=== PATIENT | male | born 1950 | race African-American/Black ===

== ENCOUNTER 2021-10-19 16:08 | Inpatient (IN) | payer OTHER ==
[2021-10-19 17:01] LABS: BASO % 0.5 % (0-2.0); EOS % 0.7 % (0-4.5); HEMOGLOBIN 12.9 GM/dL (11.7-16.9); MCH 31.1 pg (25.7-33.7); MEAN CELL VOLUME 91.3 fl (80-96); MEAN PLT VOLUME 9.3 fl (7.5-11.1); MONO % 8.3 % (3.8-10.2); NEUT % 59.5 % (42.8-82.8); PLATELET COUNT 264 10^3/uL (134-434); RBC 4.16 M/mm3 (4.00-5.60); RDW 13.7 % (11.9-15.9); WHITE BLOOD COUNT 3.9 K/mm3 (4.0-10.0)
[2021-10-19 17:05] LABS: INR 1.09 (0.83-1.09); PROTHROMBIN TIME (PATIENT) 12.5 SEC (9.7-13.0)
[2021-10-19 17:26] LABS: CHLORIDE 99 mmol/L (98-107); SODIUM 136 mmol/L (136-145)
[2021-10-19 17:28] LABS: ALBUMIN 3.4 g/dl (3.4-5.0); ANION GAP 12 MMOL/L (8-16); BLOOD UREA NITROGEN 19.8 mg/dL (7-18); CALCIUM 9.4 mg/dL (8.5-10.1); CO2 25 mmol/L (21-32)
[2021-10-19 17:31] LABS: SGOT/AST 13 U/L (15-37); SGPT/ALT 28 U/L (13-61)
[2021-10-19 17:34] LABS: BILIRUBIN,TOTAL 0.9 mg/dL (0.2-1)
[2021-10-19 17:37] LABS: ALK PHOS 80 U/L (45-117)
[2021-10-19 17:40] LABS: GLUCOSE,RANDOM 458 mg/dL (74-106)
[2021-10-19] MEDS ORDERED: SODIUM CHLORIDE 0.9% 500 ML INFUS.BAG IV ONE (17:46)
[2021-10-19] MEDS ORDERED: INSULIN REGULAR HUMAN 100 UNITS/ML *VIAL SQ ONE (18:14)
[2021-10-19] MEDS ORDERED: OSELTAMIVIR PHOSPHATE 75 MG CAPSULE PO ONE (21:34)
[2021-10-19] MEDS ORDERED: ACETAMINOPHEN 325 MG TABLET (FP) PO PRN (22:03)
[2021-10-19] MEDS ORDERED: ATORVASTATIN CA 40 MG TABLET (FP) ONE (22:32)
[2021-10-19] MEDS ORDERED: HEPARIN NA (PORCINE) 5,000 UNITS/ML 1ML VIAL ONE (22:33)
[2021-10-19] MEDS: HEPARIN NA (PORCINE) 5,000 UNITS/ML 1ML VIAL SQ SCH (22:50)
[2021-10-19] MEDS: INSULIN SLIDING SCALE (NOVOLOG) 1 VIAL SQ SCH (22:50)
[2021-10-19 22:54] LABS: URINE APPEARANCE CLEAR; URINE BILIRUBIN NEGATIVE (NEGATIVE); URINE COLOR YELLOW; URINE GLUCOSE (UA) 3+ (NEGATIVE); URINE KETONE NEGATIVE (NEGATIVE); URINE LEUK ESTERASE NEGATIVE (NEGATIVE); URINE NITRITE NEGATIVE (NEGATIVE); URINE PROTEIN NEGATIVE (NEGATIVE); URINE UROBILINOGEN 0.2 mg/dL (0.2-1.0)
[2021-10-20 06:12] LABS: BASO % 1.2 % (0-2.0); EOS % 1.7 % (0-4.5); HEMATOCRIT 39.6 % (35.4-49); HEMOGLOBIN 13.6 GM/dL (11.7-16.9); LYMPH % 44.9 % (8-40); MCH 30.8 pg (25.7-33.7); MCHC 34.3 g/dl (32.0-35.9); MEAN CELL VOLUME 89.8 fl (80-96); MEAN PLT VOLUME 8.7 fl (7.5-11.1); MONO % 7.6 % (3.8-10.2); NEUT % 44.6 % (42.8-82.8); PLATELET COUNT 254 10^3/uL (134-434); RBC 4.41 M/mm3 (4.00-5.60); RDW 14.1 % (11.9-15.9); WHITE BLOOD COUNT 3.5 K/mm3 (4.0-10.0)
[2021-10-20] MEDS: HEPARIN NA (PORCINE) 5,000 UNITS/ML 1ML VIAL SQ SCH ×3 (06:13→21:47)
[2021-10-20 06:37] LABS: ALBUMIN 3.4 g/dl (3.4-5.0); BLOOD UREA NITROGEN 14.7 mg/dL (7-18); CALCIUM 9.6 mg/dL (8.5-10.1); MAGNESIUM 2.2 mg/dL (1.8-2.4)
[2021-10-20 06:40] LABS: CREATININE 1.1 mg/dL (0.55-1.3); PHOSPHOROUS 4.1 mg/dL (2.5-4.9)
[2021-10-20 06:41] LABS: BILIRUBIN,TOTAL 0.7 mg/dL (0.2-1); TOT PROT 7.3 g/dl (6.4-8.2)
[2021-10-20] MEDS: INSULIN SLIDING SCALE (NOVOLOG) 1 VIAL SQ SCH ×3 (08:15→21:46)
[2021-10-20] MEDS: INSULIN (LEVEMIR) 100 UNITS/ML UNITS SQ SCH ×2 (08:20→21:48)
[2021-10-20] MEDS ORDERED: amLODIPine BESYLATE 10 MG TABLET (FP) ONE (09:37)
[2021-10-20] MEDS: amLODIPine BESYLATE 10 MG TABLET (FP) PO SCH (09:44)
[2021-10-20] MEDS: OSELTAMIVIR PHOSPHATE 75 MG CAPSULE PO SCH ×2 (09:44→22:30)
[2021-10-20] MEDS ORDERED: HEPARIN NA (PORCINE) 5,000 UNITS/ML 1ML VIAL ONE (15:43)
[2021-10-20] MEDS ORDERED: ATORVASTATIN CA 40 MG TABLET (FP) PO SCH (22:00)
[2021-10-20 23:03] VITALS: BMI 23.1
[2021-10-21] MEDS: HEPARIN NA (PORCINE) 5,000 UNITS/ML 1ML VIAL SQ SCH ×2 (06:45→14:07)
[2021-10-21] MEDS: INSULIN SLIDING SCALE (NOVOLOG) 1 VIAL SQ SCH ×2 (06:45→11:13)
[2021-10-21] MEDS: INSULIN (LEVEMIR) 100 UNITS/ML UNITS SQ SCH (06:45)
[2021-10-21 08:09] LABS: BASO % 0.7 % (0-2.0); EOS % 1.2 % (0-4.5); HEMATOCRIT 37.8 % (35.4-49); HEMOGLOBIN 13.1 GM/dL (11.7-16.9); LYMPH % 42.9 % (8-40); MCH 31.2 pg (25.7-33.7); MCHC 34.7 g/dl (32.0-35.9); MEAN CELL VOLUME 89.9 fl (80-96); MEAN PLT VOLUME 9.3 fl (7.5-11.1); MONO % 10.1 % (3.8-10.2); NEUT % 45.1 % (42.8-82.8); PLATELET COUNT 258 10^3/uL (134-434); RDW 13.7 % (11.9-15.9); WHITE BLOOD COUNT 2.9 K/mm3 (4.0-10.0)
[2021-10-21 08:33] LABS: BLOOD UREA NITROGEN 12.3 mg/dL (7-18); CALCIUM 9.1 mg/dL (8.5-10.1)
[2021-10-21 08:36] LABS: CREATININE 0.8 mg/dL (0.55-1.3)
[2021-10-21] MEDS: amLODIPine BESYLATE 10 MG TABLET (FP) PO SCH (09:31)
[2021-10-21] MEDS: OSELTAMIVIR PHOSPHATE 75 MG CAPSULE PO SCH (09:32)
[2021-10-21] MEDS ORDERED: INSULIN (LEVEMIR) 100 UNITS/ML UNITS SQ ONE (10:06)
[2021-10-21] MEDS ORDERED: INSULIN (NOVOLOG) ASPART 100 UNITS/ML 10ML VIAL SQ SCH (11:00)
[2021-10-21 16:39] VITALS: BP 150/91; PULSE 99; TEMP 98.6
[2021-10-21] MEDS ORDERED: INSULIN (LEVEMIR) 100 UNITS/ML UNITS SQ SCH (22:00)
[2021-10-22] MEDS ORDERED: INSULIN (LEVEMIR) 100 UNITS/ML UNITS SQ SCH (07:00)
== END 2021-10-21 18:08 | disposition home or self-care (01) | DRG 315 ==
LOC: JER 16:08 → JERBED 17:49 → OBSVTOIN 21:58 → J4W 10-20 19:24
PROVIDERS: ADMIT Hospitalist; ATTEND Internal Medicine
DX: I95.9 Hypotension, unspecified (principal); N17.9 Acute kidney failure, unspecified; J10.1 Influenza due to other identified influenza virus with other respiratory manifestations; E11.65 Type 2 diabetes mellitus with hyperglycemia; E86.0 Dehydration
CPT/HCPCS: 36415; 70450-TC; 71045-TC-FY; 72125-TC; 73564-TC-LT-FY; 74018-TC-FY; 76775-TC; 80048; 80053; 80061; 81003; 82570; 82962; 83036; 83735; 84100; 84300; 84443; 84484; 85025; 85610; 87804; 93005; 93010; 93306-TC; 93880-TC; 97116-GP; 97161-GP; 99285-25; C9803-CS; G0378; J1644; U0003; U0005

== ENCOUNTER 2022-06-27 18:37 | Inpatient (IN) | payer OTHER ==
[2022-06-27 23:47] LABS: VENOUS O2 SATURATION 38.4 % (70-80); VENOUS PCO2 47.3 mmHg (38-52); VENOUS PH 7.343 (7.310-7.410)
[2022-06-27 23:48] LABS: BASO % 0.8 % (0-2.0); EOS % 1.1 % (0-4.5); HEMATOCRIT 40.4 % (35.4-49); HEMOGLOBIN 13.5 GM/dL (11.7-16.9); LYMPH % 31.4 % (8-40); MCH 30.2 pg (25.7-33.7); MCHC 33.4 g/dl (32.0-35.9); MEAN CELL VOLUME 90.5 fl (80-96); MEAN PLT VOLUME 8.4 fl (7.5-11.1); MONO % 8.8 % (3.8-10.2); NEUT % 57.9 % (42.8-82.8); PLATELET COUNT 241 10^3/uL (134-434); RBC 4.47 M/mm3 (4.00-5.60); RDW 14.6 % (11.9-15.9); WHITE BLOOD COUNT 3.4 K/mm3 (4.0-10.0)
[2022-06-27] MEDS ORDERED: SODIUM CHLORIDE 1,000 ML IV STA (23:53)
[2022-06-28 00:07] LABS: CHLORIDE 96 mmol/L (98-107)
[2022-06-28 00:09] LABS: CALCIUM 9.4 mg/dL (8.5-10.1)
[2022-06-28 00:10] LABS: ALBUMIN 3.5 g/dl (3.4-5.0); BLOOD UREA NITROGEN 20.2 mg/dL (7-18); CO2 26 mmol/L (21-32); GLUCOSE,RANDOM 374 mg/dL (74-106)
[2022-06-28 00:13] LABS: CREATININE 1.3 mg/dL (0.55-1.3); SGOT/AST 14 U/L (15-37); SGPT/ALT 22 U/L (13-61)
[2022-06-28 00:14] LABS: BILIRUBIN,TOTAL 0.8 mg/dL (0.2-1)
[2022-06-28 00:15] LABS: TOT PROT 7.1 g/dl (6.4-8.2)
[2022-06-28 00:16] LABS: ALK PHOS 62 U/L (45-117)
[2022-06-28 00:43] LABS: ANION GAP 11 MMOL/L (8-16); SODIUM 132 mmol/L (136-145)
[2022-06-28] MEDS ORDERED: HEPARIN NA (PORCINE) 5,000 UNITS/ML 1ML VIAL IVPUSH ONE (00:55)
[2022-06-28] MEDS ORDERED: HEPARIN NA (PORCINE) 5,000 UNITS/ML 1ML VIAL ONE (01:08)
[2022-06-28 01:32] LABS: INR 1.03 (0.83-1.09); PROTHROMBIN TIME (PATIENT) 11.8 SEC (9.7-13.0)
[2022-06-28 01:35] LABS: ACTIVATED PTT 27.1 SECONDS (25.2-36.5)
[2022-06-28] MEDS ORDERED: CLOPIDOGREL BISULFATE 300 MG TABLET PO ONE (02:01)
[2022-06-28] MEDS ORDERED: ASPIRIN 325 MG TABLET PO ONE (02:01)
[2022-06-28] MEDS ORDERED: ATORVASTATIN CA 80 MG TABLET (FP) PO ONE (02:23)
[2022-06-28] MEDS ORDERED: ENALAPRIL MALEATE 10 MG TABLET PO ONE (02:30)
[2022-06-28] MEDS ORDERED: ENALAPRIL MALEATE 5 MG TABLET ONE (02:38)
[2022-06-28] MEDS ORDERED: CLOPIDOGREL BISULFATE 300 MG TABLET ONE (02:39)
[2022-06-28] MEDS ORDERED: ATORVASTATIN CA 80 MG TABLET (FP) ONE (02:39)
[2022-06-28] MEDS ORDERED: ASPIRIN 325 MG TABLET ONE (02:39)
[2022-06-28] MEDS ORDERED: HEPARIN NA (PORCINE) 5,000 UNITS/ML 1ML VIAL IVPUSH PRN ×2 (04:42)
[2022-06-28] MEDS ORDERED: HEPARIN INFUSION - 25,000 UNITS/500 ML INFUS.BAG IVPB SCH (04:45)
[2022-06-28] MEDS ORDERED: HEPARIN INFUSION - 25,000 UNITS/500 ML INFUS.BAG IVPB ONE (05:54)
[2022-06-28] MEDS: INSULIN SLIDING SCALE (NOVOLOG) 1 VIAL SQ SCH ×4 (08:00→22:19)
[2022-06-28 08:15] LABS: MAGNESIUM 2.4 mg/dL (1.8-2.4)
[2022-06-28 08:18] LABS: ALBUMIN 3.3 g/dl (3.4-5.0); BLOOD UREA NITROGEN 16.4 mg/dL (7-18)
[2022-06-28 08:19] LABS: CREATININE 0.9 mg/dL (0.55-1.3)
[2022-06-28 08:20] LABS: BASO % 0.4 % (0-2.0); EOS % 2.2 % (0-4.5); HEMATOCRIT 37.2 % (35.4-49); HEMOGLOBIN 12.6 GM/dL (11.7-16.9); LYMPH % 42.6 % (8-40); MCH 30.4 pg (25.7-33.7); MCHC 33.9 g/dl (32.0-35.9); MEAN CELL VOLUME 89.8 fl (80-96); MEAN PLT VOLUME 9.1 fl (7.5-11.1); MONO % 9.9 % (3.8-10.2); NEUT % 44.9 % (42.8-82.8); PLATELET COUNT 236 10^3/uL (134-434); RBC 4.14 M/mm3 (4.00-5.60); RDW 14.3 % (11.9-15.9); WHITE BLOOD COUNT 3.1 K/mm3 (4.0-10.0)
[2022-06-28 08:21] LABS: PHOSPHOROUS 3.9 mg/dL (2.5-4.9); TOT PROT 6.6 g/dl (6.4-8.2)
[2022-06-28] MEDS ORDERED: METOPROLOL TARTRATE 25 MG TABLET (FP) ONE (09:08)
[2022-06-28] MEDS ORDERED: CLOPIDOGREL BISULFATE 75 MG TABLET (FP) ONE (09:08)
[2022-06-28] MEDS ORDERED: ASPIRIN 81 MG CHEWABLE TABLETS ONE (09:08)
[2022-06-28] MEDS ORDERED: TAMSULOSIN HCL 0.4 MG CAP ONE (09:09)
[2022-06-28] MEDS: TAMSULOSIN HCL 0.4 MG CAP PO SCH (09:30)
[2022-06-28] MEDS: ASPIRIN 81 MG CHEWABLE TABLETS PO SCH (10:00)
[2022-06-28] MEDS: CLOPIDOGREL BISULFATE 75 MG TABLET (FP) PO SCH (10:00)
[2022-06-28] MEDS: METOPROLOL TARTRATE 25 MG TABLET (FP) PO SCH ×2 (10:00→22:21)
[2022-06-28] MEDS ORDERED: SODIUM CHLORIDE 0.9% 500 ML INFUS.BAG IV ONE (16:19)
[2022-06-28 16:25] LABS: EPI CELLS 2 /uL (0-25.1); HYALINE CASTS 0 /uL (0-3.1); URINE APPEARANCE CLEAR; URINE BACTERIA 1 /uL (0-1359); URINE BILIRUBIN NEGATIVE (NEGATIVE); URINE COLOR YELLOW; URINE GLUCOSE (UA) TRACE (NEGATIVE); URINE KETONE NEGATIVE (NEGATIVE); URINE LEUK ESTERASE NEGATIVE (NEGATIVE); URINE NITRITE NEGATIVE (NEGATIVE); URINE PROTEIN NEGATIVE (NEGATIVE); URINE RBC 10 /uL (0-23.9); URINE UROBILINOGEN 0.2 mg/dL (0.2-1.0); URINE WBC 1 /uL (0-25.8)
[2022-06-28 18:57] VITALS: BMI 21.1
[2022-06-28] MEDS ORDERED: PNEUMOC 20-VAL CONJ-DIP CRM/PF 0.5 ML SYRINGE IM ONE (20:00)
[2022-06-28] MEDS ORDERED: FLU VACC QS2022-23(6MOS UP)/PF 60 MCG/0.5 ML SYRINGE IM ONE (20:00)
[2022-06-28] MEDS ORDERED: ATORVASTATIN CA 40 MG TABLET (FP) PO SCH (22:00)
[2022-06-29] MEDS: INSULIN SLIDING SCALE (NOVOLOG) 1 VIAL SQ SCH ×2 (06:21→14:43)
[2022-06-29 07:20] LABS: BASO % 0.4 % (0-2.0); EOS % 1.3 % (0-4.5); HEMATOCRIT 38.7 % (35.4-49); HEMOGLOBIN 13.3 GM/dL (11.7-16.9); LYMPH % 24.9 % (8-40); MCH 31.2 pg (25.7-33.7); MCHC 34.5 g/dl (32.0-35.9); MEAN CELL VOLUME 90.4 fl (80-96); MEAN PLT VOLUME 8.8 fl (7.5-11.1); MONO % 9.3 % (3.8-10.2); NEUT % 64.1 % (42.8-82.8); PLATELET COUNT 240 10^3/uL (134-434); RBC 4.28 M/mm3 (4.00-5.60); RDW 14.4 % (11.9-15.9); WHITE BLOOD COUNT 3.4 K/mm3 (4.0-10.0)
[2022-06-29 07:39] LABS: CHLORIDE 108 mmol/L (98-107); SODIUM 144 mmol/L (136-145)
[2022-06-29 07:41] LABS: CALCIUM 9.1 mg/dL (8.5-10.1)
[2022-06-29 07:42] LABS: ANION GAP 7 MMOL/L (8-16); BLOOD UREA NITROGEN 15.5 mg/dL (7-18); CO2 29 mmol/L (21-32); GLUCOSE,RANDOM 133 mg/dL (74-106); MAGNESIUM 2.2 mg/dL (1.8-2.4)
[2022-06-29 07:45] LABS: CREATININE 0.8 mg/dL (0.55-1.3); PHOSPHOROUS 3.8 mg/dL (2.5-4.9)
[2022-06-29] MEDS: TAMSULOSIN HCL 0.4 MG CAP PO SCH (09:00)
[2022-06-29] MEDS ORDERED: ACETAMINOPHEN 1000 MG/100 ML BAG IVPB PRN (10:00)
[2022-06-29] MEDS ORDERED: ENALAPRIL MALEATE 10 MG TABLET PO SCH (10:00)
[2022-06-29] MEDS: ASPIRIN 81 MG CHEWABLE TABLETS PO SCH (10:03)
[2022-06-29] MEDS: CLOPIDOGREL BISULFATE 75 MG TABLET (FP) PO SCH (10:03)
[2022-06-29] MEDS ORDERED: ACETAMINOPHEN 325 MG TABLET (FP) PO PRN (10:04)
[2022-06-29] MEDS ORDERED: REGADENOSON 0.4 MG/5 ML PRE-FILLED SYRINGE IVPUSH ONE ×2 (10:06→13:00)
[2022-06-29] MEDS: METOPROLOL TARTRATE 25 MG TABLET (FP) PO SCH (10:28)
[2022-06-29 15:54] VITALS: BP 147/98; PULSE 111; RESP 18; TEMP 99.2
== END 2022-06-29 16:50 | disposition home or self-care (01) | DRG 282 ==
LOC: JER 18:37 → JERBED 06-28 02:38 → J4W 06-28 18:09
PROVIDERS: ADMIT Internal Medicine; ATTEND Internal Medicine
DX: I21.4 Non-ST elevation (NSTEMI) myocardial infarction (principal); I10 Essential (primary) hypertension; E11.65 Type 2 diabetes mellitus with hyperglycemia; E78.5 Hyperlipidemia, unspecified; N40.0 Benign prostatic hyperplasia without lower urinary tract symptoms; R00.0 Tachycardia, unspecified
CPT/HCPCS: 0241U-QW; 36415; 70450-TC; 71045-TC-FY; 78452-TC; 80048; 80053; 80061; 81003; 82010; 82803; 82962; 83036; 83735; 84100; 84443; 84484; 85025; 85610; 85730; 90677; 93005; 93010; 93017; 93306-TC; 99285-25; A9502; G0008; J1644; J2785; Q2036

== ENCOUNTER 2022-07-26 15:16 | Emergency (ER) | payer OTHER ==
[2022-07-26 15:41] VITALS: PULSE 93; TEMP 97.9; BMI 21.5
[2022-07-26] MEDS ORDERED: SODIUM CHLORIDE 0.9% 500 ML INFUS.BAG IV ONE (15:56)
[2022-07-26 17:14] LABS: BASO % 0.5 % (0-2.0); EOS % 1.8 % (0-4.5); HEMATOCRIT 33.6 % (35.4-49); HEMOGLOBIN 11.7 GM/dL (11.7-16.9); LYMPH % 36.2 % (8-40); MCHC 34.8 g/dl (32.0-35.9); MEAN CELL VOLUME 91.9 fl (80-96); MEAN PLT VOLUME 8.4 fl (7.5-11.1); NEUT % 50.5 % (42.8-82.8); PLATELET COUNT 198 10^3/uL (134-434); RBC 3.66 M/mm3 (4.00-5.60); RDW 14.4 % (11.9-15.9); WHITE BLOOD COUNT 2.8 K/mm3 (4.0-10.0)
[2022-07-26 17:23] LABS: INR 1.05 (0.83-1.09); PROTHROMBIN TIME (PATIENT) 12.1 SEC (9.7-13.0)
[2022-07-26 17:26] LABS: ACTIVATED PTT 29.4 SECONDS (25.2-36.5)
[2022-07-26 17:34] LABS: BLOOD UREA NITROGEN 14.1 mg/dL (7-18)
[2022-07-26 17:35] LABS: ALBUMIN 3.4 g/dl (3.4-5.0)
[2022-07-26 17:38] LABS: CREATININE 1.1 mg/dL (0.55-1.3)
[2022-07-26 17:39] LABS: BILIRUBIN,TOTAL 0.6 mg/dL (0.2-1)
[2022-07-26 18:05] VITALS: BP 126/85; RESP 16
[2022-07-26] MEDS ORDERED: LACTATED RINGERS SOLUTION 1000 ML INFUS.BAG IV ONE (18:37)
== END 2022-07-26 19:56 | disposition left against medical advice (07) ==
LOC: JER 15:16
DX: R42 Dizziness and giddiness (principal); I95.1 Orthostatic hypotension
CPT/HCPCS: 0241U-QW; 36415; 70450-TC; 71045-TC-FY; 72125-TC; 72170-TC-FY; 73502-TC-LT-FY; 74177-TC; 80053; 84484; 85025; 85610; 85730; 93005; 93010; 99285-25; Q9967

== ENCOUNTER 2023-07-09 17:57 | Observation (INO) | payer OTHER ==
[2023-07-09 19:13] LABS: BASO % 0.6 % (0-2.0); EOS % 0.8 % (0-4.5); HEMATOCRIT 29.8 % (35.4-49); HEMOGLOBIN 9.4 GM/dL (11.7-16.9); LYMPH % 17.1 % (8-40); MCH 25.4 pg (25.7-33.7); MCHC 31.5 g/dl (32.0-35.9); MEAN CELL VOLUME 80.6 fl (80-96); MEAN PLT VOLUME 7.8 fl (7.5-11.1); MONO % 7.7 % (3.8-10.2); NEUT % 73.8 % (42.8-82.8); PLATELET COUNT 317 10^3/uL (134-434); WHITE BLOOD COUNT 4.2 K/mm3 (4.0-10.0)
[2023-07-09 19:19] LABS: INR 1.09 (0.83-1.09); PROTHROMBIN TIME (PATIENT) 12.6 SEC (9.7-13.0)
[2023-07-09 19:21] LABS: ACTIVATED PTT 28.6 SECONDS (25.2-36.5)
[2023-07-09 19:31] LABS: CHLORIDE 102 mmol/L (98-107); POTASSIUM 4.6 mmol/L (3.5-5.1); SODIUM 135 mmol/L (136-145)
[2023-07-09 19:34] LABS: ANION GAP 8 mmol/L (4-13); CALCIUM 9.3 mg/dL (8.5-10.1); CO2 24 mmol/L (21-32)
[2023-07-09 19:35] LABS: ALBUMIN 3.3 g/dl (3.4-5.0); BLOOD UREA NITROGEN 18.1 mg/dL (7-18); MAGNESIUM 2.4 mg/dL (1.8-2.4)
[2023-07-09 19:38] LABS: CREATININE 1.3 mg/dL (0.55-1.3); PHOSPHOROUS 5.1 mg/dL (2.5-4.9); SGOT/AST 24 U/L (15-37); SGPT/ALT 37 U/L (13-61)
[2023-07-09 19:39] LABS: BILIRUBIN,TOTAL 0.4 mg/dL (0.2-1); TOT PROT 7.9 g/dl (6.4-8.2)
[2023-07-09 19:40] LABS: ALK PHOS 124 U/L (45-117)
[2023-07-09] MEDS ORDERED: ACETAMINOPHEN 1000 MG/100 ML BAG IVPB ONE (19:43)
[2023-07-09] MEDS ORDERED: SODIUM CHLORIDE 0.9% 500 ML INFUS.BAG IV ONE (19:44)
[2023-07-09 19:53] LABS: GLUCOSE,RANDOM 409 mg/dL (74-106)
[2023-07-09] MEDS ORDERED: ACETAMINOPHEN INJECTION 100 ML IVPB ONE (19:53)
[2023-07-09 21:38] LABS: PH,URINE 5.5 (5.0-8.0); URINE APPEARANCE CLEAR; URINE BILIRUBIN NEGATIVE (NEGATIVE); URINE COLOR YELLOW; URINE GLUCOSE (UA) 3+ (NEGATIVE); URINE KETONE NEGATIVE (NEGATIVE); URINE LEUK ESTERASE NEGATIVE (NEGATIVE); URINE NITRITE NEGATIVE (NEGATIVE); URINE PROTEIN TRACE (NEGATIVE); URINE UROBILINOGEN 0.2 mg/dL (0.2-1.0)
[2023-07-09] MEDS ORDERED: SODIUM CHLORIDE 1,000 ML IV SCH ×2 (22:00→22:51)
[2023-07-09] MEDS ORDERED: INSULIN REGULAR HUMAN 100 UNITS/ML *VIAL SQ ONE (23:43)
[2023-07-10] MEDS ORDERED: glipiZIDE 5 MG TABLET (FP) ONE (05:56)
[2023-07-10] MEDS: INSULIN ASPART SLIDING SCALE (NOVOLOG) 1 VIAL SQ SCH ×4 (08:53→22:33)
[2023-07-10] MEDS: glipiZIDE 5 MG TABLET (FP) PO SCH ×3 (09:00→18:45)
[2023-07-10 09:01] LABS: BASO % 0.4 % (0-2.0); EOS % 1.6 % (0-4.5); HEMOGLOBIN 8.3 GM/dL (11.7-16.9); MCHC 32.1 g/dl (32.0-35.9); MEAN PLT VOLUME 8.4 fl (7.5-11.1); MONO % 9.9 % (3.8-10.2); NEUT % 62.1 % (42.8-82.8); PLATELET COUNT 290 10^3/uL (134-434); RBC 3.21 M/mm3 (4.00-5.60); RDW 15.6 % (11.9-15.9); WHITE BLOOD COUNT 3.5 K/mm3 (4.0-10.0)
[2023-07-10 09:19] LABS: POTASSIUM 4.3 mmol/L (3.5-5.1)
[2023-07-10 09:23] LABS: ALBUMIN 3.1 g/dl (3.4-5.0); BLOOD UREA NITROGEN 15.4 mg/dL (7-18); CALCIUM 9.2 mg/dL (8.5-10.1); MAGNESIUM 2.4 mg/dL (1.8-2.4)
[2023-07-10] MEDS: TAMSULOSIN HCL 0.4 MG CAP PO SCH (09:23)
[2023-07-10 09:26] LABS: CREATININE 0.8 mg/dL (0.55-1.3); PHOSPHOROUS 4.2 mg/dL (2.5-4.9)
[2023-07-10 09:28] LABS: BILIRUBIN,TOTAL 0.5 mg/dL (0.2-1); TOT PROT 7.3 g/dl (6.4-8.2)
[2023-07-10] MEDS ORDERED: ENOXAPARIN NA (PORCINE) 40 MG/0.4 ML DISP.SYRIN SQ SCH (10:00)
[2023-07-10] MEDS: ENOXAPARIN NA (PORCINE) 40 MG/0.4 ML DISP.SYRIN SQ SCH (10:13)
[2023-07-10 10:28] LABS: RETICULOCYTES 2.02 % (0.5-1.5)
[2023-07-11] MEDS: INSULIN ASPART SLIDING SCALE (NOVOLOG) 1 VIAL SQ SCH ×4 (07:31→21:19)
[2023-07-11] MEDS: glipiZIDE 5 MG TABLET (FP) PO SCH ×3 (08:59→16:45)
[2023-07-11] MEDS: TAMSULOSIN HCL 0.4 MG CAP PO SCH (08:59)
[2023-07-11] MEDS: ENOXAPARIN NA (PORCINE) 40 MG/0.4 ML DISP.SYRIN SQ SCH (09:00)
[2023-07-11] MEDS ORDERED: LACTATED RINGERS SOLUTION 1,000 ML/1,000 ML INFUS.BAG IV STA (09:52)
[2023-07-11 12:24] VITALS: BMI 23.9
[2023-07-12] MEDS: glipiZIDE 5 MG TABLET (FP) PO SCH ×2 (06:24→12:10)
[2023-07-12] MEDS: INSULIN ASPART SLIDING SCALE (NOVOLOG) 1 VIAL SQ SCH ×2 (06:44→12:10)
[2023-07-12] MEDS: TAMSULOSIN HCL 0.4 MG CAP PO SCH (09:25)
[2023-07-12] MEDS: ENOXAPARIN NA (PORCINE) 40 MG/0.4 ML DISP.SYRIN SQ SCH (09:26)
[2023-07-12 15:13] VITALS: BP 154/91; PULSE 113; RESP 18; TEMP 98.7
[2023-07-13] MEDS ORDERED: metoPROLOL SUCCINATE 25 MG TAB.SR.24H (FP) PO SCH (10:00)
== END 2023-07-12 15:56 | disposition home or self-care (01) ==
LOC: JER 17:57 → UNDOADMOB 21:05 → JERBED 21:05 → OBSVTOIN 21:46 → INTOOBSV 21:46 → JERBED 07-10 08:53 → J4W 07-11 11:16
PROVIDERS: ADMIT Student in an Organized Health Care Education/Training Program; ATTEND Internal Medicine
PROC: 3E033NZ Introduction of Analgesics, Hypnotics, Sedatives into Peripheral Vein, Percutaneous Approach (ICD-10-PCS; principal; 2023-07-10)
PROC: 3E0337Z Introduction of Electrolytic and Water Balance Substance into Peripheral Vein, Percutaneous Approach (ICD-10-PCS; 2023-07-10)
PROC: 3E013VG Introduction of Insulin into Subcutaneous Tissue, Percutaneous Approach (ICD-10-PCS; 2023-07-10)
PROC: 3E013GC Introduction of Other Therapeutic Substance into Subcutaneous Tissue, Percutaneous Approach (ICD-10-PCS; 2023-07-10)
DX: E11.65 Type 2 diabetes mellitus with hyperglycemia (principal); R55 Syncope and collapse; I47.19 Other supraventricular tachycardia; Z91.81 History of falling; W19.XXXA Unspecified fall, initial encounter; Y93.9 Activity, unspecified; Y92.9 Unspecified place or not applicable; I10 Essential (primary) hypertension; E78.5 Hyperlipidemia, unspecified; D64.89 Other specified anemias; N40.0 Benign prostatic hyperplasia without lower urinary tract symptoms; I25.10 Atherosclerotic heart disease of native coronary artery without angina pectoris; Z79.84 Long term (current) use of oral hypoglycemic drugs; Z86.73 Personal history of transient ischemic attack (TIA), and cerebral infarction without residual deficits; Z79.02 Long term (current) use of antithrombotics/antiplatelets; M17.0 Bilateral primary osteoarthritis of knee; Z79.4 Long term (current) use of insulin
CPT/HCPCS: 0241U-QW; 36415; 70450-TC; 71045-TC-FY; 72125-TC; 72170-TC-FY; 80053; 81003; 82550; 82962; 83735; 83880; 84100; 84443; 84484; 85025; 85045; 85610; 85730; 87086; 93005; 93010; 93306-TC; 96361; 96372; 96374; 97116-GP; 97161-GP; 99285-25; G0378